=== PATIENT | male | born 2000 | race Two or more races ===

== ENCOUNTER 2021-02-24 15:55 | Emergency (ER) | payer OTHER ==
[~2021-02-24] VITALS: Ht 175.3 cm; Wt 78.2 kg
[2021-02-24] MEDS ORDERED: ACETAMINOPHEN 500 MG TABLET PO ONE (19:30)
[2021-02-24] MEDS ORDERED: KETOROLAC 30 MG/1 ML IM ONE (19:30)
[2021-02-24] MEDS ORDERED: ACETAMINOPHEN 500 MG TABLET ONE (19:31)
[2021-02-24] MEDS ORDERED: KETOROLAC 30 MG/1 ML ONE (19:31)
[2021-02-24 19:40] VITALS: BP 133/77
== END 2021-02-24 19:57 | disposition home or self-care (01) ==
LOC: ED 19:51
DX: G89.11 Acute pain due to trauma (principal); M54.6 Pain in thoracic spine; X58.XXXA Exposure to other specified factors, initial encounter; Y93.89 Activity, other specified; Y92.009 Unspecified place in unspecified non-institutional (private) residence as the place of occurrence of the external cause; Y99.8 Other external cause status
CPT/HCPCS: 72072; 96372; 99283; J1885